=== PATIENT | male | born 2005 | race Caucasian/White ===

== ENCOUNTER 2024-12-16 00:20 | Emergency (ER) | payer OTHER, SELFPAY ==
[2024-12-16 00:27] VITALS: BP 134/78; PULSE 125; RESP 20; TEMP 39.4; O2SAT 99; BMI 19.0
--- NOTE | 2024-12-16 00:36 | ED.FEVER ---
HPI - Fever General Time Seen by Provider: 00:36 Date Seen: 12/16/24 Chief Complaint: Fever Stated Complaint: fever Time Seen by Provider: 12/16/24 00:25 Source: patient, RN notes reviewed and old records reviewed Mode of arrival: ambulatory Limitations: no limitations History of Present Illness HPI Narrative: 19-year-old male who presents today with fever, headache, body aches. Patient reports that he started feeling poorly this morning, with runny nose, body aches, headache, fever and chills. He took 400 mg of ibuprofen in the morning along with another 200 mg in the afternoon. No other medications. Slight cough. No chest pain, no shortness of breath. Denies nausea, vomiting, diarrhea, abdominal pain. No known ill contacts but recently traveled here from [place] and got sick on the way. Says he had some upper respiratory symptoms a couple weeks ago that resolved. Reports family history of ?blood clots? but no personal history. Not currently on medications. Related Data Home Medications ?Medication ?Instructions ?Recorded ?Confirmed No Known Home Medications 12/16/24 12/16/24 Allergies Allergy/AdvReac Type Severity Reaction Status Date / Time No Known Drug Allergies Allergy Verified 12/16/24 00:34 Exam Narrative Exam Narrative: General: Well-developed and well-nourished, no acute distress Head: Atraumatic and normocephalic Eyes: Pupils are equal reactive, extraocular motions intact, conjunctiva clear ENT: External nose and ears are normal, posterior pharynx without erythema or exudate Neck: No midline cervical tenderness, full spontaneous range of motion the neck, trachea midline, no adenopathy Heart: Tachycardic but regular Lungs: Clear to auscultation bilaterally without wheezes or crackles Abdomen: Soft, nontender, nondistended with active bowel sounds Musculoskeletal: No tenderness, deformity, or edema Neurologic: Awake, alert, and oriented x3, no gross focal neurologic deficits, cranial nerves intact as tested Psych: Mood and affect are appropriate Skin: No rashes Const Vital Signs, click to edit/add: Vital Signs - 24 hr 12/16/24 00:27 Temperature 102.9 F H Pulse Rate [Left Pulse Oximeter] 125 H Respiratory Rate 20 Blood Pressure [Right Upper Arm] 134/78 Pulse Oximetry 99 Oxygen Delivery Method Room Air Course Course ED Course: Reviewed prior records, no records available in [facility] or [facility]. Patient presents with body aches, sinus congestion, fever and chills today. No nausea, vomiting, diarrhea, abdominal pain, chest pain or shortness of breath. No sore throat. On exam here, patient is febrile and tachycardic, lungs are clear, no cervical adenopathy, no abdominal tenderness. Suspect viral respiratory illness, respiratory panel is ordered. Consider further testing if this is negative. Ibuprofen ordered for fever. Reevaluation(s) Time of Reevaluation #1: 01:18 Reevaluation #1: Viral respiratory panel negative, labs ordered along with chest x-ray to evaluate for pneumonia. Time of Reevaluation #2: 02:20 Reevaluation #2: Chest x-ray independently interpreted by me negative for acute findings. Labs and pill interpreted by me with normal white blood cell count, normal hemoglobin, monocytosis is present, normal basic metabolic panel, normal hepatic panel, normal lactate, urinalysis not consistent with infection. At this point, no definite etiology for patient's fever is found. He has no nuchal rigidity or acute encephalopathy to suggest bacterial meningitis, no back pain or risk factors for spinal epidural abscess, no abdominal pain or tenderness to suggest intra-abdominal infection. No rashes. Recent travel to floor at a but no endemic febrile illness there including malaria, consider tick-borne illness but early season. With elevated monocytes, consider infectious mononucleosis. Time of Reevaluation #3: 02:37 Reevaluation #3: Patient recheck, clinically looks much better, discussed findings and plan. Stable for discharge Vital Signs Vital signs: Initial Vital Signs Temperature 102.9 F H 12/16/24 00:27 Temperature Source Oral 12/16/24 00:27 Pulse Rate 125 H 12/16/24 00:27 Pulse Rhythm Regular 12/16/24 00:27 Respiratory Rate 20 12/16/24 00:27 Blood Pressure 134/78 12/16/24 00:27 Blood Pressure Mean 96 12/16/24 00:27 Blood Pressure Position Sitting 12/16/24 00:27 Pulse Oximetry 99 12/16/24 00:27 Oxygen Delivery Method Room Air 12/16/24 00:27 Vital Signs Temperature 102.9 F H 12/16/24 00:27 Pulse Rate 125 H 12/16/24 00:27 Respiratory Rate 20 12/16/24 00:27 Blood Pressure 134/78 12/16/24 00:27 Pulse Oximetry 99 12/16/24 00:27 Oxygen Delivery Method Room Air 12/16/24 00:27 Temperature 102.9 F H 12/16/24 00:27 Pulse Rate 125 H 12/16/24 00:27 Respiratory Rate 20 12/16/24 00:27 Blood Pressure 134/78 12/16/24 00:27 Pulse Oximetry 99 12/16/24 00:27 Oxygen Delivery Method Room Air 12/16/24 00:27 Medications Administered Medications: Discontinued Medications Generic Name Dose Route Start Last Admin Trade Name Kyleq PRN Reason Stop Dose Admin Ibuprofen 600 mg 12/16/24 00:45 12/16/24 00:54 Ibuprofen 600 Mg Tablet PO 12/16/24 00:46 600 mg ONCE ONE Administration MDM - Fever Lab Data Labs: Lab Results 12/16/24 12/16/24 12/16/24 Range/Units 00:35 01:35 01:40 WBC 6.05 (4.50-11.00) K/uL RBC 5.28 (4.30-5.90) m/uL Hgb 15.3 (13.5-17.5) gm/dL Hct 44.5 (37.0-53.0) % MCV 84 (80-100) fL MCH 29 (26-34) pg MCHC 34 (32-36) gm/dL RDW Coeff of Jase 11.8 (11.5-15.5) % Plt Count 230 (140-440) K/uL Neut % (Auto) 68.9 (42.0-72.0) % Lymph % (Auto) 10.7 L (20-44) % Mclennan % (Auto) 17.2 H (0.0-11.0) % Eos % (Auto) 2.0 (0.0-7.0) % Baso % (Auto) 0.2 (0.0-3.0) % Neut # (Auto) 4.17 (1.7-7.0) K/uL Lymph # (Auto) 0.60 L (0.90-2.90) K/uL Mclennan # (Auto) 1.00 H (0.00-0.90) K/UL Eos # (Auto) 0.12 (0.00-0.50) K/uL Baso # (Auto) 0.01 (0.00-0.30) K/uL Abs Immat Gran (auto) 0.06 (0.00-0.30) K/uL Imm/Tot Granulo (auto) 1.0 % Sodium 139 (135-149) mmol/L Potassium 3.8 (3.6-5.1) mmol/L Chloride 101 (96-114) mmol/L Carbon Dioxide 28 (20-32) mmol/L Anion Gap 10 (7-15) mEq/L BUN 12 (5-24) mg/dL Creatinine 0.9 (0.5-1.5) mg/dL Estimated Creat Clear 117.60 Estimated GFR 125 ml/min Glucose 104 (60-115) mg/dL Lactate 1.2 (0.5-1.9) mmol/L Calcium 9.8 (8.4-10.6) mg/dL Magnesium 1.7 (1.5-2.6) mg/dL Total Bilirubin 0.6 (0.1-1.5) mg/dL Direct Bilirubin 0.3 (0.0-0.5) mg/dL AST 33 (12-35) U/L ALT 22 (4-50) U/L Alkaline Phosphatase 81 (40-150) U/L Total Protein 8.2 (6.0-8.3) g/dL Albumin 5.0 (3.3-5.0) g/dL Procalcitonin 0.07 (<0.50) ng/mL Urine Color Yellow (Yellow) Urine Appearance Clear (Clear) Urine pH 7.5 (5.0-8.5) Ur Specific [place] 1.010 (1.000-1.030) Urine Protein Negative (Negative) Urine Glucose (UA) Negative (Negative) Urine Ketones Negative (Negative) Urine Blood Negative (Negative) Urine Nitrite Negative (Negative) Urine Bilirubin Negative (Negative) Urine Urobilinogen 0.2 (0.2-1.0) Ur Leukocyte Esterase Negative (Negative) Urine RBC 0-2 (0-2) Urine WBC 0-2 (0-5) Ur Squamous Epith Cells Few (None-Few) Urine Bacteria None (None) SARS-CoV-2 (PCR) Negative SARS-CoV-2 (Negative) Influenza Type A (PCR) Negative PCR FLU A (Negative) Influenza Type B (PCR) Negative PCR FLU B (Negative) RSV (PCR) Negative PCR RSV (Negative) Discharge Plan Discharge Clinical Impression: Acute febrile illness, Influenza-like illness Patient Disposition: Home, Self-Care Instructions: Fever in Adults (ED) Additional Instructions: Follow-up with primary care in 1 week if not better Activity Level: No Restrictions Discharge Diet: Regular Prescriptions: No Action No Known Home Medications Follow Up/Referrals: Provider,Not a Local [Primary Care Provider] - Stand Alone Forms: [employer] Info Instructions
[2024-12-16] MEDS: IBUPROFEN 600 MG TABLET PO (00:54)
[2024-12-16 01:17] LABS: PCR FLU A Negative PCR FLU A (Negative); PCR FLU B Negative PCR FLU B (Negative); PCR RSV Negative PCR RSV (Negative); SARS PCR* Negative SARS-CoV-2 (Negative)
--- NOTE | 2024-12-16 01:18 | CRLHL7_ITS ---
For Patients: As a result of the Cures Act, medical imaging exams and procedure reports are released immediately into your electronic medical record. You may view this report before your referring provider. If you have questions, please contact your health care provider. Indication: Fever Technique: Two views of the chest Comparison: None Findings/Impression: No acute cardiopulmonary process detected. Dictated by Mu Castillo MD @ 12/16/2024 2:18:52 AM (Electronically Signed)
[2024-12-16 01:46] LABS: Appearance Urine Clear (Clear); Bilirubin Urine Negative (Negative); Blood Urine Negative (Negative); Color Urine Yellow (Yellow); Glucose Urine Negative (Negative); Ketones Urine Negative (Negative); Leukocyte Esterase Urine Negative (Negative); Nitrite Urine Negative (Negative); Protein Urine Negative (Negative); Urobilinogen Urine 0.2 (0.2-1.0); pH Urine 7.5 (5.0-8.5)
[2024-12-16 01:46] LABS: Lactate* 1.2 mmol/L (0.5-1.9)
[2024-12-16 01:49] LABS: Basophils Absolute Auto 0.01 K/uL (0.00-0.30); Basophils Percent Auto 0.2 % (0.0-3.0); Eosinophils Absolute Auto 0.12 K/uL (0.00-0.50); Hematocrit 44.5 % (37.0-53.0); Hemoglobin* 15.3 gm/dL (13.5-17.5); Immature Granulocytes Abs Auto 0.06 K/uL (0.00-0.30); Lymphocytes Percent Auto 10.7 % (20-44); Mean Corpuscular HGB Conc 34 gm/dL (32-36); Mean Corpuscular Hemoglobin 29 pg (26-34); Mean Corpuscular Volume 84 fL (80-100); Monocytes Percent Auto 17.2 % (0.0-11.0); Neutrophils Absolute Auto 4.17 K/uL (1.7-7.0); Neutrophils Percent Auto 68.9 % (42.0-72.0); Platelet Count* 230 K/uL (140-440); RDW Coefficient of Variation % 11.8 % (11.5-15.5); Red Blood Count 5.28 m/uL (4.30-5.90); White Blood Count* 6.05 K/uL (4.50-11.00)
[2024-12-16 01:51] LABS: Slide Review Reflex No
[2024-12-16 02:05] LABS: Chloride* 101 mmol/L (96-114); Sodium* 139 mmol/L (135-149)
[2024-12-16 02:06] LABS: Potassium* 3.8 mmol/L (3.6-5.1)
[2024-12-16 02:08] LABS: Alanine Aminotransferase* 22 U/L (4-50); Alkaline Phosphatase* 81 U/L (40-150); Anion Gap 10 mEq/L (7-15); Aspartate Amino Transferase* 33 U/L (12-35); Bilirubin Direct* 0.3 mg/dL (0.0-0.5); Bilirubin Total* 0.6 mg/dL (0.1-1.5); Blood Urea Nitrogen* 12 mg/dL (5-24); Calcium* 9.8 mg/dL (8.4-10.6); Carbon Dioxide* 28 mmol/L (20-32); Creatinine* 0.9 mg/dL (0.5-1.5); Estimated Glomerular Filt Rate 125 ml/min; Glucose* 104 mg/dL (60-115); Total Protein* 8.2 g/dL (6.0-8.3)
[2024-12-16 02:09] LABS: Magnesium* 1.7 mg/dL (1.5-2.6)
[2024-12-16 02:14] LABS: RBC Urine 0-2 (0-2); Squamous Epithelial Cell Urine Few (None-Few); WBC Urine 0-2 (0-5)
[2024-12-16 02:24] LABS: Procalcitonin* 0.07 ng/mL (<0.50)
[2024-12-16 02:42] LABS: Mono Screen* Negative (Negative)
== END 2024-12-16 02:44 | disposition home or self-care (01) ==
PROVIDERS: Emergency Provider Family Medicine
DX: R50.9 Fever, unspecified (principal); J10.1 Influenza due to other identified influenza virus with other respiratory manifestations
CPT/HCPCS: 36415; 71046; 80048; 80076; 81001; 83605; 83735; 84145; 85025; 86308; 87040; 87631; 99283; 99284; A9270